=== PATIENT | male | born 1960 | race Two or more races ===

== ENCOUNTER 2017-11-02 07:44 | Emergency (ER) | payer OTHER, BC ==
[2017-11-02] MEDS: IBUPROFEN 600 MG TABLET. PO (08:01)
== END 2017-11-02 09:08 | disposition home or self-care (01) ==
LOC: ER 07:44
DX: S16.1XXA Strain of muscle, fascia and tendon at neck level, initial encounter (principal); V49.9XXA Car occupant (driver) (passenger) injured in unspecified traffic accident, initial encounter; Y93.89 Activity, other specified; Y99.8 Other external cause status; Y92.89 Other specified places as the place of occurrence of the external cause
CPT/HCPCS: 72125; 99284-25